=== PATIENT | female | born 1980 | race Caucasian/White ===

== ENCOUNTER → 2017-09-01 | Outpatient (CLI) | payer BC | LOC: FIMAGING 10:19 → EDSTATUS 10:21 | PROVIDERS: ATTEND Nurse Practitioner | DX: M54.2 Cervicalgia (principal); Z85.3 Personal history of malignant neoplasm of breast ==

== ENCOUNTER → 2018-01-18 | Outpatient (CLI) | payer BC ==
[~2018-01-18] MED LIST: LIDOCAINE 1% 300 MG/30 ML SDV ONE
== END ==
LOC: FIMAGING 08:21
PROVIDERS: ATTEND Internal Medicine Hematology & Oncology
PROC: 07BJ3ZX Excision of Left Inguinal Lymphatic, Percutaneous Approach, Diagnostic (ICD-10-PCS; principal; 2018-01-18)
DX: R59.0 Localized enlarged lymph nodes (principal)
CPT/HCPCS: 88184-90; 88185-91